=== PATIENT | male | born 1965 | race Caucasian/White ===

== ENCOUNTER 2019-01-06 09:59 | Inpatient (IN) | payer BC, OTHER ==
[~2019-01-06] VITALS: Ht 210.8 cm; Wt 171.5 kg
[~2019-01-06 09:59] MED LIST: AMIO200T4 PO; DILT180C4 PO; FURO-68 PO; METO50TA6 PO; POTA20PA30 PO; RAMI5CAP50 PO; RIVA10TA PO
[2019-01-06] MEDS ORDERED: VANCOMYCIN PER PHARMACY MC ONE (10:15)
[2019-01-06] MEDS ORDERED: IV NORMAL SALINE 1,000ML 1,000 ML IV ONE (10:15)
--- NOTE | 2019-01-06 10:41 | PHYS DOC ---
Past History Past Medical History: A-Fib, CAD Past Surgical History: Tonsillectomy, Other Additional Past Surgical Histo: cardiac ablation for A. fib Smoking: Cigarettes, Less than 1pk/day, Chew Alcohol Use: Heavy Drug Use: None Adult General Chief Complaint Chief Complaint: LOWER EXTREMITY SWELLING HPI HPI Patient is a 53-year-old male presents with approximately 3 days of increasing right lower leg redness and pain. Patient had a fever of 103 2 days ago. Patient has taken no medicine for fever. Patient's partner teja a line on the leg for the extent of the redness yesterday and the redness has progressed beyond the line. There is no difficulty breathing. No cough. Partner notes that he had some blood in the urine 2 days ago along with nausea and vomiting 2 days ago. Nausea and vomiting has since resolved. Reports that his urine looks to her current within normal but no overt blood in the urine. Nothing seems to make the symptoms better or worse. Patient smokes but less than a pack a day. Only one cigarette 2 days ago, none yesterday. He does chew tobacco.[] Review of Systems Review of Systems Constitutional: Denies fever or chills [] Eyes: Denies change in visual acuity, redness, or eye pain [] HENT: Denies nasal congestion or sore throat [] Respiratory: Denies cough or shortness of breath [] Cardiovascular: No additional information not addressed in HPI [] GI: Denies abdominal pain, nausea, vomiting, bloody stools or diarrhea [] : Denies dysuria or hematuria [] Musculoskeletal: Denies back pain or joint pain [] Integument: Denies rash or skin lesions [] Neurologic: Denies headache, focal weakness or sensory changes [] Endocrine: Denies polyuria or polydipsia [] All other systems were reviewed and found to be within normal limits, except as documented in this note. Current Medications Current Medications Current Medications Medications (Trade) Dose Ordered Sig/Meryl Start Time Stop Time Status Last Admin Dose Admin Ceftriaxone Sodium 1 gm/ Sodium Chloride 50 ml @ 100 mls/hr 1X ONCE 01/06/19 10:15 01/06/19 10:44 UNV Sodium Chloride 1,000 ml @ 1,000 mls/hr 1X ONCE 01/06/19 10:15 01/06/19 11:14 UNV Vancomycin HCl (Vanco Per Pharmacy) 1 each 1X ONCE 01/06/19 10:15 01/06/19 10:16 UNV Allergies Allergies Allergies Coded Allergies Type Severity Reaction Last Updated Verified No Known Drug Allergies 09/02/13 No Physical Exam Physical Exam Constitutional: Well developed, well nourished, no acute distress, non-toxic appearance. [] HENT: Normocephalic, atraumatic, bilateral external ears normal, oropharynx moist, no oral exudates, nose normal. [] Eyes: PERRLA, EOMI, conjunctiva normal, no discharge. [] Neck: Normal range of motion, no tenderness, supple, no stridor. [] Cardiovascular:Heart rate regular rhythm, no murmur [] Lungs & Thorax: Bilateral breath sounds clear to auscultation [] Abdomen: Bowel sounds normal, soft, no tenderness, no masses, no pulsatile masses. [] Skin: Warm, dry, skin stasis changes bilateral lower leg. Right leg has diffuse erythema, no open wound noted. Mild edema. No inguinal lymphadenopathy.[] Back: No tenderness, no CVA tenderness. [] Extremities: See skin exam above. No tenderness, no cyanosis, no clubbing, ROM intact. [] Neurologic: Alert and oriented X 3, normal motor function, normal sensory function, no focal deficits noted. [] Psychologic: Affect normal, judgement normal, mood normal. [] Current Patient Data Vital Signs Vital Signs Date Time Temp Pulse Resp B/P (MAP) Pulse Ox O2 Delivery O2 Flow Rate FiO2 01/06/19 10:05 98.2 99 20 97 Room Air EKG EKG [] Radiology/Procedures Radiology/Procedures [] Course & Med Decision Making Course & Med Decision Making Pertinent Labs and Imaging studies reviewed. (See chart for details) ED course: Patient arrived, was placed in bed, and tolerated exam well. He had some nausea without vomiting so Zofran was administered. Due to concern about the cellulitis that was progressing, heat IV and a box were started. After return of the lab for studies, consultation was made with hospitalist service for admission and they graciously accepted. He was admitted in improved condition. Medical decision making: Patient with cellulitis of his right lower extremity. No evidence of toxic epidermal necrolysis. He has a slightly elevated white count no reported fever 2 days ago of 103. His blood sugar is noted to be elevated however he is not in diabetic ketoacidosis. This may be a potential contributor for the infection as well. No evidence of gross hematuria.[] Dragon Disclaimer Dragon Disclaimer This electronic medical record was generated, in whole or in part, using a voice recognition dictation system. Departure Departure: Impression: Primary Impression: Cellulitis of right lower extremity Additional Impression: Hyperglycemia Disposition: ADMITTED INPATIENT Admitting Physician: Shiela Mohr Condition: IMPROVED Referrals: PCP,NO (PCP) Problem Qualifiers ANTONIA CUNNINGHAM DO January 06, 2019 10:41
[2019-01-06 10:42] LABS: CLARITY,URINE CLEAR; COLOR,URINE AMBER
[2019-01-06 10:43] LABS: BACTERIA,URINE FEW /HPF (0-FEW); BILIRUBIN,URINE SMALL (NEG); GLUCOSE,URINE 500 mg/dL (NEG); NITRITE,URINE NEG (NEG); RBC,URINE RARE /HPF (0-2); SQUAMOUS EPITHELIAL CELL,UR MOD /LPF; UROBILINOGEN,URINE 1 mg/dL (0.2 mg/dL)
[2019-01-06] MEDS ORDERED: IV NORMAL SALINE 50ML 50 ML ONE (10:50)
[2019-01-06] MEDS ORDERED: cefTRIAXone SODIUM 1 GM VIAL ONE (10:50)
[2019-01-06] MEDS ORDERED: DIPHTH,PERTUSS(ACELL),TET TOX 0.5 ML DISP.SYRIN. VAX IM ONE (11:00)
[2019-01-06] MEDS ORDERED: VANCOMYCIN 2 GM in IV NORMAL SALINE 500ML 500 ML IV ONE (11:00)
[2019-01-06 11:04] LABS: BASO % 0 % (0-3); EOS % 0 % (0-3); HEMOGLOBIN 16.2 g/dL (13.0-17.5); LYMPH # 1.2 x10^3/uL (1.0-4.8); LYMPH % 10 % (24-48); MEAN CORPUSCULAR HEMOGLOBIN 29 pg (25-35); MEAN CORPUSCULAR HGB CONC 34 g/dL (31-37); MEAN CORPUSCULAR VOLUME 86 fL (79-100); MONO # 0.7 x10^3/uL (0.0-1.1); MONO % 7 % (0-9); NEUT # 9.3 x10^3uL (1.8-7.7); NEUT % 83 % (31-73); PLATELET COUNT 218 x10^3/uL (140-400); RED BLOOD COUNT 5.57 x10^6/uL (4.30-5.70); WHITE BLOOD COUNT 11.3 x10^3/uL (4.0-11.0)
[2019-01-06 11:13] LABS: ALBUMIN 3.2 g/dL (3.4-5.0); ALBUMIN/GLOBULIN RATIO 0.7 (1.0-1.7); GFR 77.6; POTASSIUM 4.4 mmol/L (3.5-5.1); TOTAL BILIRUBIN 1.1 mg/dL (0.2-1.0); TOTAL PROTEIN 7.8 g/dL (6.4-8.2)
[2019-01-06] MEDS ORDERED: ONDANSETRON PF 4 MG/2 ML VIAL. IV ONE (11:15)
[2019-01-06] MEDS ORDERED: IV NORMAL SALINE 1,000ML 1,000 ML IV SCH (11:50)
[2019-01-06] MEDS ORDERED: ONDANSETRON PF 4 MG/2 ML VIAL. IV PRN (12:00)
[2019-01-06] MEDS ORDERED: ACETAMINOPHEN 325 MG TABLET PO PRN (12:00)
[2019-01-06 13:26] VITALS: BP 120/82
--- NOTE | 2019-01-06 13:26 | NUR ---
NURSING NOTE ADMIT PT ADMIT TO ROOM 122 FOR DX OF RLE CELLULITIS AND HYPERGLYCEMIA VIA EMS ACCOMPANIED BY [facility]. ABDIRASHID VASQUEZ
[2019-01-06] MEDS ORDERED: DEXTROSE 50% 25 GM / 50ML DISP.SYRIN. IV PRN (14:15)
[2019-01-06] MEDS: IV NORMAL SALINE 1,000ML 1,000 ML IV SCH (14:24)
[2019-01-06] MEDS: METOCLOPRAMIDE HCL 10 MG/2 ML VIAL. IV PRN (14:24)
[2019-01-06] MEDS: VANCOMYCIN PER PHARMACY MC PRN (14:41)
--- NOTE | 2019-01-06 14:44 | NUR ---
Pharmacy Vancomycin Dosing Note S:Consulted to monitor and dose vancomycin started 01/06/19. O:BHAVANI HARTMANN is a 53 year old M with Cellulitis, . Height: 6 feet, 11 inches Weight: 170.300946 kg [place] Body Weight: 102.90 Adjusted Body Weight: 129.90 Dosing Weight: Actual Other Antibiotics: CEFTRIAXONE 2GM IV Q24HR LABS: Last BUN: 13 Last Creatinine: 1.0 Creatinine Clearance: 153.33 Last WBC: 11.3 Vancomycin Dosing: Loading Dose: 2000 mg x1 Dosing Weight: Actual Target Trough: 10-20 A: Based on: Actual weight, renal function and indication P: 1. Begin Vancomycin 1500 mg IV q8h 2. Follow up Trough level on 01/07/19 at 1130 3. Pharmacy will continue to monitor, follow and adjust therapy as needed. ROGER CASTILLO, 01/06/19 [id number]
--- NOTE | 2019-01-06 14:49 | HP ---
ADMIT DATE: 01/06/2019 HISTORY OF PRESENT ILLNESS: The patient is a 53-year-old male patient who came to the Emergency Room complaining of increased right lower extremity swelling, redness, and pain. He also had a fever up to 103.2 degree 2 days ago. He apparently has had shaking chills, fever, nausea, and vomiting on Sunday and again on Sunday, he was urged to come to the hospital by his girlfriend, but he refused and finally she actually marked the area of redness in his right lower extremity and he continued to have nausea but vomiting has resolved. He reports that his urine was red according to his girlfriend. He also complained of pain in the epigastric and right upper quadrant and therefore he was seen in the Emergency Room, was found to have right lower extremity cellulitis. He is also known to have varicose veins and chronic venous stasis. He was evaluated in the Emergency Room. His lab work showed that he has mild leukocytosis, white cell count 11,300. His chemistry was unremarkable as mild hyponatremia and lactic acid was only 1.5; however, his blood glucose was high at 197. His total bilirubin was slightly elevated. Urinalysis was unremarkable and his prothrombin time and INR was within normal limits. He was admitted with right lower extremity cellulitis and was started on IV ceftriaxone as well as vancomycin. PAST MEDICAL HISTORY: Significant for atrial fibrillation, status post cardioversion and ablation done in [place] about 8 years ago. He is known to have varicose veins and chronic bilateral venous stasis dermatitis. Apparently, he underwent sclerotherapy. PAST SURGICAL HISTORY: Significant for atrial ablation and sclerotherapy of his varicose veins. ALLERGIES: He has no known drug allergies. MEDICATIONS: He is currently on no medication. FAMILY HISTORY: He has 2 brothers and 1 sister. He does not know anything about if they have any medical problems. His father is still alive at the age of 87 and known to have bladder cancer, coronary artery disease, and myocardial infarction. Mother at the age of 66 because of brain aneurysm. SOCIAL HISTORY: He lives with his girlfriend. He has a daughter and a son from previous marriage. He smoked very few cigarettes, but chew tobacco. Drinks 6-8 drinks once a week. Does not use any drugs. 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 REVIEW OF SYSTEMS: The patient denied any blurring of vision, cataract, glaucoma, or macular degeneration. Denied any earache, tinnitus, or sensorineural deafness. Denied any nosebleeds, stuffy nose, or postnasal drip. Denied any sore throat, sore tongue, toothache, hoarseness of voice, or difficulty swallowing. Has had nausea and vomiting over the weekend and this morning also, but no vomiting. He has constipation, but he is reluctant to take any laxatives. Denied any hematemesis, melena, or hematochezia. Denied any dysuria, frequency, or hematuria. Did complain of nocturia. Denied any chest pain, shortness of breath, orthopnea, or paroxysmal nocturnal dyspnea. Denied any cough, phlegm, or hemoptysis. Denied any dizziness, lightheadedness. Did complain of chills, rigors, or fever over the weekend. PHYSICAL EXAMINATION: GENERAL: On arrival to the Emergency Room, he looked well and was clearly in no apparent respiratory distress. No pallor, jaundice, cyanosis, or thyromegaly. No jugular venous distention, but marked bilateral lower extremity swelling, more so on the right than left. VITAL SIGNS: His heart rate was 99, blood pressure was 146/74, temperature was 98.2, respiratory rate 20, and oxygen saturation was 97% on room air. HEAD, EYES, EARS, NOSE, AND THROAT: Showed normocephalic, atraumatic. NECK: Supple. HEART: Showed normal first and second heart sounds with no gallop, rub, or murmur. CHEST: Clear to auscultation. No crepitation or rhonchi. ABDOMEN: Distended with tenderness mostly in the epigastric and right upper quadrant. His Nance sign was positive. There is no guarding or rigidity. No organomegaly. All hernial orifice intact. Bowel sounds normal. NEUROLOGIC: He is awake, alert, responding appropriately. All cranial nerves intact. EXTREMITIES: He moves extremities without difficulty. He has bilateral venous stasis dermatitis in both sides and these were marked redness and swelling with redness extending to below his right knee. LABORATORY DATA: On arrival showed white cell count of 11,300, hemoglobin 16.2, hematocrit 48, MCV 86, and platelet count of 218,000 with normal manual differential. His serum sodium was 133, potassium 4.4, chloride 98, bicarbonate 29, anion gap of 6, BUN 13, creatinine 1, estimated GFR was 77 mL per minute. His glucose was 197. Lactic acid s 1.5, calcium was 10. Total bilirubin is 1.1. AST, ALT, alkaline phosphatase were normal. Total protein was 7.8, albumin was 3.2. His prothrombin time was 12.3, INR 1.2. Urinalysis showed the urine was mar, clear with a pH of 6, specific gravity of 1.025. There is large amount of protein, large amount of glucose, trace of ketones, small amount of blood, negative for nitrite, small amount of bilirubin, negative for leukocyte esterase. There are rare rbc's, 1-4 wbc's, very few bacteria. IMPRESSION: In summary, this is a 53-year-old male patient who was admitted with right lower extremity cellulitis. He is known to have chronic venous stasis dermatitis, has had sclerotherapy of varicose veins before, and history of atrial fibrillation, status post cardioversion and eventually ablation. His lab work is consistent with probably type 2 diabetes as he has hyperglycemia, glycosuria. He is complaining also of pain in his right epigastric and right upper quadrant concerning for possible pancreatitis versus acute cholecystitis. My plan is to keep him n.p.o., continue with IV fluid, IV antibiotic. We will add serum lipase to his lab work, order abdominal ultrasound as well as venous Doppler ultrasound of both extremities. SUSAN GOMES MD DR: RAE/pranay JOB#: [id number] / [id number]
[2019-01-06] MEDS: INSULIN LISPRO 300 UNITS/3 ML INSULN.PEN. SQ SCH (17:00)
--- NOTE | 2019-01-06 17:53 | RAD ---
Limited abdomen ultrasound study of the right upper quadrant Clinical indications: Right upper quadrant pain with nausea. FINDINGS: Pancreas is obscured by overlying bowel gas. The liver is not well-seen due to severe attenuation of sound consistent with fatty infiltration of the liver. Evaluation for focal hepatic mass cannot be completed by sonography. Gallstones are seen within the neck of the gallbladder with at least one gallstone measuring 13 mm in size. Gallbladder is not distended. No gallbladder wall thickening is evident. The extrahepatic bile duct cannot be visualized. The length of the right kidney is 16.3 cm. No hydronephrosis or renal mass or perinephric fluid collection is seen on the right side. IMPRESSION: Difficult exam due to bowel gas and severe fatty infiltration of the liver. The extrahepatic bile duct and pancreas cannot be visualized. Cholelithiasis. LEFT LEG VENOUS DOPPLER STUDY: Clinical indications: Left leg swelling. Findings: Duplex sonography (including stallings scale evaluation and color flow and waveform spectral analysis) of the proximal aspect of the profunda femoral vein and the entire length of the common femoral and superficial femoral and popliteal veins and the tibioperoneal trunk and the proximal aspect of the posterior tibial and peroneal veins of the left leg was performed. Normal compressibility, augmentation of color Doppler flow after calf compression, and respiratory variation of Doppler flow is seen. Thus, there are no sonographic findings of deep venous thrombosis within these veins. The left greater saphenous vein has been ablated previously. IMPRESSION: There are no sonographic findings of deep venous thrombosis within the veins discussed above of the left lower extremity. RIGHT LEG VENOUS DOPPLER STUDY: Clinical indications: Right leg swelling. Findings: Duplex sonography (including stallings scale evaluation and color flow and waveform spectral analysis) of the proximal aspect of the profunda femoral vein and the entire length of the common femoral and superficial femoral and popliteal veins and the tibioperoneal trunk and the proximal aspect of the posterior tibial and peroneal veins of the right leg was performed. Normal compressibility, augmentation of color Doppler flow after calf compression, and respiratory variation of Doppler flow is seen. Thus, there are no sonographic findings of deep venous thrombosis within these veins. The right greater saphenous vein has been ablated previously. IMPRESSION: There are no sonographic findings of deep venous thrombosis within the veins discussed above of the right lower extremity. Right groin lymph nodes are seen. The largest measures 4 cm. Clinical correlation is recommended. This may be reactive in nature secondary to cellulitis but lymphomatous process cannot be excluded at this point in time. Therefore, clinical follow-up may be needed. Electronically signed by: Desean Tello MD (01/06/2019 5:51 PM) [facility]
[2019-01-06 19:25] VITALS: BP 147/84
[2019-01-06] MEDS: VANCOMYCIN 1.5 GM in IV NORMAL SALINE 500ML 500 ML IV SCH (20:17)
[2019-01-06] MEDS: LACTOBACILLUS RHAMNOSUS GG 1 CAPSULE. PO SCH (21:18)
[2019-01-06 23:44] VITALS: BP 149/92
[2019-01-07 02:05] LABS: HEMOGLOBIN A1C 10.4 % (4.8-5.6)
[2019-01-07] MEDS: IV NORMAL SALINE 1,000ML 1,000 ML IV SCH ×3 (03:28→20:30)
[2019-01-07] MEDS: VANCOMYCIN 1.5 GM in IV NORMAL SALINE 500ML 500 ML IV SCH ×3 (03:42→20:30)
[2019-01-07 05:37] VITALS: BP 142/90
[2019-01-07 06:46] LABS: BASO % 1 % (0-3); EOS # 0.1 x10^3/uL (0.0-0.7); EOS % 1 % (0-3); HEMATOCRIT 40.1 % (39.0-53.0); HEMOGLOBIN 13.7 g/dL (13.0-17.5); LYMPH # 1.8 x10^3/uL (1.0-4.8); LYMPH % 21 % (24-48); MEAN CORPUSCULAR HEMOGLOBIN 29 pg (25-35); MEAN CORPUSCULAR HGB CONC 34 g/dL (31-37); MEAN CORPUSCULAR VOLUME 86 fL (79-100); MONO # 0.8 x10^3/uL (0.0-1.1); MONO % 10 % (0-9); NEUT # 5.7 x10^3uL (1.8-7.7); NEUT % 68 % (31-73); PLATELET COUNT 195 x10^3/uL (140-400); RED BLOOD COUNT 4.66 x10^6/uL (4.30-5.70); RED CELL DISTRIBUTION WIDTH 13.4 % (11.5-14.5); WHITE BLOOD COUNT 8.4 x10^3/uL (4.0-11.0)
[2019-01-07 07:00] LABS: ALBUMIN 2.6 g/dL (3.4-5.0); ALBUMIN/GLOBULIN RATIO 0.7 (1.0-1.7); CALCIUM 8.6 mg/dL (8.5-10.1); CREATININE 0.9 mg/dL (0.7-1.3); GFR 87.6; POTASSIUM 3.9 mmol/L (3.5-5.1); TOTAL BILIRUBIN 0.7 mg/dL (0.2-1.0); TOTAL PROTEIN 6.5 g/dL (6.4-8.2)
[2019-01-07] MEDS: INSULIN LISPRO 300 UNITS/3 ML INSULN.PEN. SQ SCH ×3 (08:00→17:00)
[2019-01-07] MEDS ORDERED: NORMAL SALINE IV ONE (09:30)
[2019-01-07] MEDS ORDERED: SINCALIDE IV ONE (09:30)
[2019-01-07] MEDS: LACTOBACILLUS RHAMNOSUS GG 1 CAPSULE. PO SCH ×2 (10:36→20:29)
[2019-01-07 10:49] VITALS: BP 131/91
--- NOTE | 2019-01-07 11:39 | RAD ---
Intraoperative cholangiogram with gallbladder ejection fraction, 01/07/2019: HISTORY: Abdominal pain, nausea, vomiting Following IV injection of 5.5 mCi of technetium 99m Choletec there was prompt uptake of the radionuclide from the blood stream by the liver. Activity was evident in the gallbladder, bile ducts and small bowel at 15 minutes. Mild bile reflux into the stomach was noted. Additional imaging of the gallbladder was then performed following IV injection of 3.4 mcg of cholecystokinin. The gallbladder ejection fraction was estimated at 5 percent. IMPRESSION: 1. No evidence of cystic duct or common bile duct obstruction. 2. Mild bile reflux into the stomach. 3. Low gallbladder ejection fraction of 5 percent. Electronically signed by: Rudy Perdue MD (01/07/2019 11:35 AM) [facility]
[2019-01-07 11:53] LABS: VANC TR 9.6 mcg/mL (10.0-20.0)
--- NOTE | 2019-01-07 12:24 | NUR ---
NURSING NOTE INSULIN PT NPO FOR BREAKFAST, NO INSULIN GIVEN. PT BLOOD SUGAR AT LUNCH 168 BUT PT NOT EATING MUCH, TOOK FEW BITES AND NAUSEATED. NO INSULIN GIVEN. ABDIRASHID VASQUEZ.
[2019-01-07 14:52] VITALS: BP 128/87
--- NOTE | 2019-01-07 16:00 | RAD ---
CT Abdomen and Pelvis without contrast History: Right upper quadrant pain, enlarged kidneys Technique: Noncontrast CT imaging was performed of the abdomen and pelvis. Multiplanar images are reviewed. Exposure: One or more of the following individualized dose reduction techniques were utilized for this examination: 1. Automated exposure control 2. Adjustment of the mA and/or kV according to patient size 3. Use of iterative reconstruction technique. Comparison: Ultrasound exam January 06, 2019 Findings: There is no significant abnormality limited visualized lung bases. There is diffuse hepatic steatosis. There are multiple gallstones, gallbladder not dilated. There is a small calcification of the head of the pancreas more medially located than expected course of the common bile duct although the common bile duct poorly distinguished. There is no hydronephrosis of either kidney. There is no renal calculus. Longitudinal dimension of the right kidney is about 15.5 cm, left about 14.2 cm. There is no adrenal nodularity. There is mild hazy and strandy change about the pancreatic head and descending duodenum. Accurate evaluation of bowel is limited without oral contrast. Bowel is not significantly dilated. Normal caliber appendix is visualized. There is no free fluid or free air. There is mild diverticulosis of the descending and sigmoid colon not associated with significant localized inflammatory type change. There is mild dextroscoliosis of lumbar spine.. There is advanced degenerative disc disease throughout lumbar spine, multilevel facet degenerative change. There is variable lateral recess stenosis of the lumbar spine greatest bilaterally at L4-5 and on the right at L1-L2. There is some variable multilevel lumbar neural foramina compromise greatest on the left at L1-L2 through L4-5 and on the right at L1-2. There is infrarenal abdominal aortic aneurysm about 3.9 cm AP. There is nonspecific circumferential prominence of urinary bladder irch. There are some nonspecific inguinal nodes bilaterally largest on the right about 1.5 cm short axis dimension. Impression: 1. There is some hazy and strandy change about the head of the pancreas and descending duodenum which may be due to duodenitis or pancreatitis. 2. There is cholelithiasis. Small calculus of the pancreatic head is more medially located than expected course of the poorly distinguished common bile duct. 3. There is infrarenal abdominal aortic aneurysm up to 3.9 cm. 4. There are nonspecific enlarged inguinal nodes greater on the right for which clinical follow-up advised. 5. There is mild colonic diverticulosis. 6. There is multilevel advanced lumbar degenerative disc disease. There is variable lateral recess stenosis, also multilevel lumbar neural foramina compromise. 7. There is bilateral nephromegaly, no hydronephrosis or calculus, may be due to patient's body habitus. 8. There is hepatic steatosis. 9. There is nonspecific prominence of urinary bladder rich, could be due to chronic outlet obstruction unless suspicion for cystitis. Electronically signed by: Noe Eng MD (01/07/2019 3:57 PM) [id number]
--- NOTE | 2019-01-07 17:01 | NUR ---
Order Verified Yes Consent signed Yes Previous PICC placement No Past Medical/Surgical history and current diagnosis reviewed Yes Patient Medical /Surgical History Related to PICC line placement Arrhythmias, afib resolved Special considerations for PICC line placement pt 6'11" in height PICC placement indication frame assembler antibiotic usage, Name of PICC Nurse Amara Love RN
--- NOTE | 2019-01-07 17:03 | NUR ---
Procedure: Following complete explanation of the PICC procedure including the indications, risks, and potential complications, informed consent was obtained. The possibility for infection was discussed along with signs, symptoms, and prevention. All the patient's questions were answered. IV Device Protocol was used. Written and verbal patient education was provided. Hand hygiene performed. Standardized central line checklist was utilized. The patient was placed in the supine position, the right arm was prepped with chlorhexidine and patient draped with maximum sterile barrier. 1 mL 1% lidocaine was infiltrated into the skin to provide local anesthesia. A thorough assessment of the right upper extremity completed. Using real-time ultrasound guidance and standardized micro puncture set, the brachial vein was punctured and a peel away sheath was placed using the modified Seldinger technique. A tip location device was used to ensure adequate catheter placement. The catheter was secured using a securement device and an antimicrobial patch was applied directly on the insertion site followed by a transparent dressing. The purple port withdrew blood and flushed without resistance. Patient tolerated the procedure without apparent complication. A single Lumen Power PICC placement successful and uncomplicated. Placement verified by EKG tip confirmation system with green p wave and anjana confirmation. Tip located in the low SVC per 3CG Complications: None
[2019-01-07 20:18] VITALS: BP 105/69
[2019-01-07] MEDS ORDERED: ACETAMINOPHEN 325 MG TABLET PO ONE (20:28)
[2019-01-07] MEDS: ACETAMINOPHEN 325 MG TABLET PO PRN (20:29)
[2019-01-07 22:54] VITALS: BP 124/77
--- NOTE | 2019-01-08 03:25 | PN ---
DATE: 01/07/2019 SUBJECTIVE: The patient is resting, slightly propped up in bed. He continues to complain of some nausea, right upper quadrant pain. His erythema in his right lower extremity is actually if anything is getting slightly worse; however, the patient is afebrile and hemodynamically stable. We did actually an abdominal ultrasound, which showed that there are gallstones and are seen within the neck of the gallbladder with at least one gallstone measuring 13 mm in size. Gallbladder is not distended and gallbladder wall thickening was evident. Extrahepatic bile duct cannot be visualized. The length of the right kidney is 16.3 cm. No hydronephrosis, renal mass or perinephric fluid collection is seen on the right side. The pancreas and extrahepatic bile duct was visualized, so we did a hepatobiliary scan, which basically showed that there is no evidence of cystic duct or common bile duct obstruction, mild bile reflux into the stomach, low gallbladder ejection fraction of 55%. I spoke with Dr. Palacios and basically he did not recommend doing the cholecystectomy urgently for his biliary dyskinesia and recommended doing it electively given that he has an ongoing infection and he is a newly diagnosed diabetic with poorly controlled blood sugar. PHYSICAL EXAMINATION: GENERAL: When I saw him this afternoon, he looked well and was clearly in no apparent respiratory distress. No pallor, jaundice, cyanosis or thyromegaly. No jugular venous distention. No lower limb edema. VITAL SIGNS: His heart rate was 76, blood pressure was 131/91, temperature was 98.7, oxygen saturation was 96% on room air. HEAD, EYES, EARS, NOSE AND THROAT: Showed normocephalic, atraumatic. NECK: Supple. HEART: Showed normal first and second heart sounds. No gallop, rub or murmur. CHEST: Clear to auscultation. No crepitation or rhonchi. ABDOMEN: Distended, soft, nontender. No guarding or rigidity. No organomegaly. All hernial orifice intact. Bowel sounds normal. NEUROLOGIC: He was awake, alert, responding appropriately. All cranial nerves intact. He moves extremities without difficulty, ambulates without assistance or assistive device. EXTREMITIES: His right lower extremity continued to be more swollen and erythema slightly larger today than yesterday. His intake was 3786. No output was recorded. LABORATORY DATA: His lab work this morning showed a serum sodium 136, potassium 3.9, chloride 102, bicarbonate 26, anion gap of 8, BUN of 10, creatinine 0.9. Estimated GFR was 88 mL per minute. His glucose 150, calcium was 8.6. Total bilirubin, AST, ALT, alkaline phosphatase were normal. Total protein was 6.5. Albumin was 2.6. His white cell count was down to 8400, hemoglobin 13.7, hematocrit 40, MCV 86 and platelet count of 195,000. ASSESSMENT: 1. Right lower extremity cellulitis for which he is on IV vancomycin and ceftriaxone. 2. Chronic bilateral venous hypertension and chronic hyperpigmentation. 3. Newly diagnosed type 2 diabetes mellitus. 4. Biliary dyskinesia. 5. Markedly enlarged right kidney for which I have arranged for him to have a CT scan of the abdomen and pelvis without contrast. 6. Morbid obesity with body mass index of 38. PLAN: My plan is to arrange for him to have a PICC line. Continue with IV fluid. We will do the CT scan of the abdomen and obviously once the decision is made about discharging him, we will make an appointment for him to be seen by Dr. Palacios as an outpatient for his biliary dyskinesia and need for laparoscopic cholecystectomy. SUSAN GOMES MD DR: RAE/pranay JOB#: [id number] / [id number]
[2019-01-08] MEDS: VANCOMYCIN 1.5 GM in IV NORMAL SALINE 500ML 500 ML IV SCH ×3 (03:58→20:38)
[2019-01-08 05:08] VITALS: BP 151/91
[2019-01-08] MEDS: ACETAMINOPHEN 325 MG TABLET PO PRN (05:20)
[2019-01-08 05:26] LABS: HEMATOCRIT 39.3 % (39.0-53.0); HEMOGLOBIN 13.3 g/dL (13.0-17.5); RED BLOOD COUNT 4.55 x10^6/uL (4.30-5.70); RED CELL DISTRIBUTION WIDTH 13.4 % (11.5-14.5); WHITE BLOOD COUNT 6.7 x10^3/uL (4.0-11.0)
[2019-01-08 05:39] LABS: ALBUMIN 2.7 g/dL (3.4-5.0); ALBUMIN/GLOBULIN RATIO 0.7 (1.0-1.7); CALCIUM 8.5 mg/dL (8.5-10.1); CREATININE 0.8 mg/dL (0.7-1.3); GFR 100.4; TOTAL BILIRUBIN 0.5 mg/dL (0.2-1.0); TOTAL PROTEIN 6.6 g/dL (6.4-8.2)
[2019-01-08] MEDS: IV NORMAL SALINE 1,000ML 1,000 ML IV SCH ×2 (06:15→15:46)
[2019-01-08] MEDS: INSULIN LISPRO 300 UNITS/3 ML INSULN.PEN. SQ SCH ×3 (08:02→16:54)
[2019-01-08] MEDS: LACTOBACILLUS RHAMNOSUS GG 1 CAPSULE. PO SCH ×2 (08:03→20:38)
[2019-01-08] MEDS: VANCOMYCIN PER PHARMACY MC PRN (09:39)
--- NOTE | 2019-01-08 09:40 | NUR ---
Pharmacy Vancomycin Dosing Note S:Consulted to monitor and dose vancomycin started 01/06/19. O:BHAVANI HARTMANN is a 53 year old M with Cellulitis, . Height: 6 feet, 11 inches Weight: 170.158890 kg [place] Body Weight: 102.90 Adjusted Body Weight: 129.90 Dosing Weight: IBW Other Antibiotics: CEFTRIAXONE 2GM IV Q24HR LABS: Last BUN: 9 Last Creatinine: 0.8 Creatinine Clearance: 191 Last WBC: 6.7 Last Procalcitonin: Tmax (past 24 hours): Microbiology: I/O: Drug Levels: Last Trough level: 9.6 on 01/07/19 at 1130 Last dose given at Vancomycin Dosing: Loading Dose: 2000 mg x1 Dosing Weight: Actual Target Trough: 10-20 A: Based on: PHYSICIAN REQUEST FOR DOSING P: 1. Continue Vancomycin 1500 mg IV q8h 2. Follow up Trough level on 01/09/19 at 1130 3. Pharmacy will continue to monitor, follow and adjust therapy as needed. DAR PIMENTEL, 01/08/19 [id number]
[2019-01-08 11:06] VITALS: BP 127/83
[2019-01-08 16:14] VITALS: BP 159/80
[2019-01-08 19:39] VITALS: BP 151/71
[2019-01-08] MEDS: METOCLOPRAMIDE HCL 10 MG/2 ML VIAL. IV PRN (21:01)
[2019-01-08 23:05] VITALS: BP 148/80
[2019-01-09] MEDS: VANCOMYCIN 1.5 GM in IV NORMAL SALINE 500ML 500 ML IV SCH ×2 (04:17→12:43)
[2019-01-09] MEDS: METOCLOPRAMIDE HCL 10 MG/2 ML VIAL. IV PRN (04:21)
[2019-01-09 05:33] LABS: HEMOGLOBIN 13.5 g/dL (13.0-17.5); RED BLOOD COUNT 4.54 x10^6/uL (4.30-5.70); RED CELL DISTRIBUTION WIDTH 13.5 % (11.5-14.5)
[2019-01-09 05:50] LABS: ALBUMIN 2.8 g/dL (3.4-5.0); ALBUMIN/GLOBULIN RATIO 0.7 (1.0-1.7); CALCIUM 8.7 mg/dL (8.5-10.1); CREATININE 0.8 mg/dL (0.7-1.3); GFR 100.4; TOTAL BILIRUBIN 0.7 mg/dL (0.2-1.0); TOTAL PROTEIN 6.8 g/dL (6.4-8.2)
[2019-01-09 06:00] VITALS: BP 125/80
--- NOTE | 2019-01-09 06:17 | PN ---
DATE: 01/08/2019 SUBJECTIVE: The patient is a 53-year-old male patient, who was admitted with marked swelling and redness of his right lower extremity. He was started on IV vancomycin as well as IV ceftriaxone. He did have a right upper quadrant pain and we did investigate that by ultrasound and hepatobiliary scan and apparently has biliary dyskinesia. However, I spoke with Dr. Palacios who did not recommend any urgent surgical intervention given that he has an infection and he has a newly diagnosed type 2 diabetes. Given that he has nephromegaly, I did a CT scan of the abdomen and pelvis, which showed that he has bilateral enlarged kidneys, the right kidney was about 15.5 and left was 14.2, but there is no evidence of any hydronephrosis. There were no renal calculi and it was felt that given his size that may be the appropriate size for his kidneys as 170 kilograms with There are multiple other finding, but none of them requires any immediate attention and particular, he has infrarenal abdominal aortic aneurysm up to 3.9 cm. I have explained to him and his girlfriend the finding in details and provide them with a copy of the CT scan report. On questioning him today, he denied any complaint. PHYSICAL EXAMINATION: GENERAL: When I examined him, he looked well and was clearly in no apparent respiratory distress. No pallor, jaundice, cyanosis, or thyromegaly. No jugular venous distension. No limb edema. VITAL SIGNS: His heart rate was 73, blood pressure 127/83, temperature was 98, respiratory rate was 20, and oxygen saturation was 97%. HEAD, EYES, EARS, NOSE AND THROAT: Normocephalic, atraumatic. NECK: Supple. HEART: Showed normal first and second heart sounds with no gallop, rub or murmur. CHEST: Clear to auscultation. No crepitation or rhonchi. ABDOMEN: Distended, soft, nontender. No guarding or rigidity. No organomegaly. All hernial orifice intact. Bowel sounds normal. NEUROLOGIC: He is awake, alert, responding appropriately. All his cranial nerves are intact. He moves extremities without difficulty, ambulates without assistance or assistive devices. His intake was 3786, no output was recorded. LABORATORY DATA: His lab work as of this morning showed a white cell count of 6700, hemoglobin 13.3, hematocrit 39, MCV 86 and platelet count 211,000. His chemistry showed a serum sodium 136, potassium 4, chloride 102, bicarbonate 29, anion gap of 7, BUN 9, creatinine 0.8, estimated GFR was 100 mL per minute, his glucose 170, calcium was 8.5. Total bilirubin, AST, ALT, alkaline phosphatase were normal. Total protein was 6.6 and albumin was 2.7. Lipase was 64. His hemoglobin A1c was 10.4%. ASSESSMENT AND PLAN: 1. Right lower extremity cellulitis, for which he is now on IV vancomycin and ceftriaxone. 2. Chronic bilateral venous hypertension, chronic hyperpigmentation. 3. Newly diagnosed type 2 diabetes mellitus. 4. Biliary dyskinesia. 5. Mildly enlarged kidneys, probably appropriate for his size. CT scan showed no evidence of hydronephrosis or renal calculi. 6. Morbid obesity with body mass index of 38. The patient has a PICC line. We will continue with IV fluid. He is now on IV vancomycin as well as ceftriaxone and we did start him also on he is now on insulin sliding scale. I will repeat all his lab work tomorrow and we will decide on further management accordingly. He might eventually go home on oral antibiotic. SUSAN GOMES MD DR: RAE/pranay JOB#: [id number] / [id number]
[2019-01-09] MEDS: INSULIN LISPRO 300 UNITS/3 ML INSULN.PEN. SQ SCH ×2 (07:46→12:00)
[2019-01-09] MEDS: LACTOBACILLUS RHAMNOSUS GG 1 CAPSULE. PO SCH (08:37)
[2019-01-09 11:08] VITALS: BP 162/96
[2019-01-09] MEDS: VANCOMYCIN PER PHARMACY MC PRN (12:41)
--- NOTE | 2019-01-09 12:41 | NUR ---
Pharmacy Vancomycin Dosing Note S:Consulted to monitor and dose vancomycin started 01/06/19. O:BHAVANI HARTMANN is a 53 year old M with Cellulitis, . Height: 6 feet, 11 inches Weight: 171.808674 kg [place] Body Weight: 102.90 Adjusted Body Weight: 130.30 Dosing Weight: Adjusted Other Antibiotics: CEFTRIAXONE 2GM IV Q24HR LABS: Last BUN: 9 Last Creatinine: 0.8 Creatinine Clearance: 191 CALC (100 GFR LAB) Last WBC: 7 Last Procalcitonin: Tmax (past 24 hours): Microbiology: I/O: Drug Levels: Last Trough level: 12 on 01/09/19 at 1145 Last dose given at Vancomycin Dosing: Loading Dose: 2000 mg x1 Dosing Weight: Adjusted Target Trough: 10-20 A: Based on: P: 1. Continue Vancomycin 1500 mg IV q8h 2. Follow up Trough level on 08/13/18 at 1130 3. Pharmacy will continue to monitor, follow and adjust therapy as needed. DAR PIMENTEL, 01/09/19 [id number]
[2019-01-09] MEDS ORDERED: CEFT1PIG2 IV (14:28)
[2019-01-09] MEDS ORDERED: METF500T9 PO (14:28)
[2019-01-09] MEDS ORDERED: LINE600T PO (14:28)
[2019-01-09] MEDS ORDERED: GLIM1TAB PO (14:37)
--- NOTE | 2019-01-09 14:55 | NUR ---
NURSING NOTE EDUCATION PT IS NEWLY DIABETIC, EDUCATION PRINTED FOR PT ABOUT DIABETIC, DIET, EXERCISE, MEDICATIONS, AND FOLLOW UP. PT ENCOURAGED TO FIND A PRIMARY CARE DOCTOR. PT STATES "I TAKE MYSELF OFF MY MEDICATIONS, THEY HAD ME ON SO MANY MEDS, I JUST STOPPED TAKING THEM". PT WAS PLEASANT DURING THE DISCUSSION BUT STATES "I WILL DO WHAT I WANT TOO". ABDIRASHID VASQUEZ.
--- NOTE | 2019-01-09 15:29 | NUR ---
NURSING NOTE DISCHARGE PT DISCHARGED TO HOME VIA AMBULATION ACCOMPANIED BY SELF. WRITTEN AND VERBAL DISCHARGE INSTRUCTIONS GIVEN TO PT AND DIABETIC EDUCATION. SEE OTHER NURSING NOTE EDUCATION. [facility]CRIPTS CALLED INTO [facility]. NO COMPLICATIONS, Jeramie BIRMINGHAM RN.
== END 2019-01-09 15:32 | disposition home or self-care (01) | DRG 872 ==
LOC: ER 09:59 → 1 SOUTH 11:44
PROVIDERS: ADMIT Internal Medicine; ATTEND Internal Medicine
PROC: 02HV33Z Insertion of Infusion Device into Superior Vena Cava, Percutaneous Approach (ICD-10-PCS; principal; 2019-01-07)
PROC: B548ZZA Ultrasonography of Superior Vena Cava, Guidance (ICD-10-PCS; 2019-01-07)
DX: A41.9 Sepsis, unspecified organism (principal); L03.115 Cellulitis of right lower limb; I25.10 Atherosclerotic heart disease of native coronary artery without angina pectoris; I48.91 Unspecified atrial fibrillation; F17.210 Nicotine dependence, cigarettes, uncomplicated; I87.2 Venous insufficiency (chronic) (peripheral); I10 Essential (primary) hypertension; E11.65 Type 2 diabetes mellitus with hyperglycemia; K82.8 Other specified diseases of gallbladder; N28.81 Hypertrophy of kidney; E66.01 Morbid (severe) obesity due to excess calories; I87.8 Other specified disorders of veins; Z80.52 Family history of malignant neoplasm of bladder; Z68.38 Body mass index [BMI] 38.0-38.9, adult; Z82.49 Family history of ischemic heart disease and other diseases of the circulatory system
CPT/HCPCS: 36415; 74176; 76705; 78227; 80053; 80061; 80202; 81001; 82947; 83036; 83605; 83690; 85025; 85027; 85610; 87040; 90471; 90715; 93970; 96365; 96366; 96367; 96375; A9537; J0696; J1815; J2405; J2765; J2805; J3010; J3370; J7040; 99285-25; J7030